=== PATIENT | female | born 1995 | race Two or more races ===

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

== ENCOUNTER → 2017-02-28 | Outpatient (CLI) | payer OTHER ==
--- NOTE | 2017-02-28 17:02 | RADIOLOGY REPORT (SQ) ---
EXAM DESCRIPTION: U/S RETROPERITON (RENAL/AORTA) COMPLETED DATE/TIME: 02/28/2017 3:26 pm REASON FOR STUDY: ESSENTIAL HTN E03.9 HYPOTHYROIDISM, UNSPECIFIED N92.1 EXCESSIVE AND FREQUENT MEN STRUATION WITH IRREGULAR CYC I10 ESSENTIAL (PRIMARY) HYPERTENSION COMPARISON: None. TECHNIQUE: Dynamic and static grayscale images acquired of the kidneys and bladder and recorded on P ACS. Additional selected color Doppler and spectral images recorded. LIMITATIONS: Large patient FINDINGS: RIGHT KIDNEY: Right kidney 10.6 cm in length. No hydronephrosis. No gross chest, stones or masses. LEFT KIDNEY: Left kidney is 10.2 cm in length. No hydronephrosis. No gross cysts, stones, or mirtha s. BLADDER: No masses. Ureteral jets not visualized. OTHER FINDINGS: No other significant finding. IMPRESSION: Limited normal study TECHNICAL DOCUMENTATION: JOB ID: [id number] [employer]- All Rights Reserved
--- NOTE | 2017-02-28 17:03 | RADIOLOGY REPORT (SQ) ---
EXAM DESCRIPTION: U/S NON-OB PELVIS W/O DOP COMPLETED DATE/TIME: 02/28/2017 3:26 pm REASON FOR STUDY: EXCESSIVE AND FREQUENT MENSTRUATION WITH IRREGULAR CYCLE E03.9 HYPOTHYROIDISM, UN SPECIFIED N92.1 EXCESSIVE AND FREQUENT MENSTRUATION WITH IRREGULAR CYC I10 ESSENTIAL (PRIMARY) HYPE RTENSION COMPARISON: None. TECHNIQUE: Dynamic and static grayscale images acquired of the pelvis via transabdominal approach an d recorded on PACS. Additional selected color Doppler and spectral images recorded. LIMITATIONS: Large body habitus FINDINGS: UTERUS: Contour normal. No mass. Uterus is 8 x 4 x 4 cm in size ENDOMETRIAL STRIPE: No focal or generalized thickening. No masses. Endometrial stripe 6 mm in thickn ess CERVIX: No nabothian cysts. RIGHT OVARY: Not visualized RIGHT OVARY DOPPLER: Not performed LEFT OVARY: No abnormal masses. 2.5 x 1.8 x 1.4 cm in size LEFT OVARY DOPPLER: Normal arterial vascular flow without evidence for torsion. FREE FLUID: None noted. OTHER: No other significant finding. IMPRESSION: Right ovary not visualized due to bowel gas. Grossly normal uterus and left ovary. Limited study due to large body habitus TECHNICAL DOCUMENTATION: JOB ID: [id number] [employer]- All Rights Reserved
--- NOTE | 2017-02-28 17:06 | RADIOLOGY REPORT (SQ) ---
EXAM DESCRIPTION: U/S THYROID/SFT TISS HD NECK COMPLETED DATE/TIME: 02/28/2017 3:26 pm REASON FOR STUDY: HYPOTHYROIDISM E03.9 HYPOTHYROIDISM, UNSPECIFIED N92.1 EXCESSIVE AND FREQUENT ME NSTRUATION WITH IRREGULAR CYC I10 ESSENTIAL (PRIMARY) HYPERTENSION COMPARISON: None. TECHNIQUE: Dynamic and static soares-scale images acquired of the thyroid gland. Selected additional c olor/power Doppler images recorded. All images stored to PACS. LIMITATIONS: None. FINDINGS: RIGHT LOBE: Normal size, 3.3 x 2 x 1.4 cm. Heterogeneous echotexture. No cystic or solid masses. LEFT LOBE: Normal size, 4 x 1.8 x 1.3 cm. Heterogeneous echotexture. No cystic or solid masses. ISTHMUS: Normal size. Homogeneous echotexture. No cystic or solid masses. OTHER: No other significant finding. IMPRESSION: Heterogeneous thyroid, normal size. No discrete cysts or masses. TECHNICAL DOCUMENTATION: JOB ID: [id number] [employer]- All Rights Reserved
== END ==
LOC: RAD 14:13
PROVIDERS: ATTEND Family Medicine
DX: E03.9 Hypothyroidism, unspecified (principal); N92.1 Excessive and frequent menstruation with irregular cycle; I10 Essential (primary) hypertension
CPT/HCPCS: 76536; 76770; 76856

== ENCOUNTER → 2017-08-02 | Outpatient (CLI) | payer OTHER, MEDICAID ==
--- NOTE | 2017-08-02 12:10 | RADIOLOGY REPORT (SQ) ---
EXAM DESCRIPTION: ANKLE LEFT COMPLETE COMPLETED DATE/TIME: 08/02/2017 11:44 am REASON FOR STUDY: PAIN IN RIGHT ANKLE AND JOINTS OF RIGHT FOOT (M25.571) M25.571 PAIN IN RIGHT ANKL E AND JOINTS OF RIGHT FOOT COMPARISON: None. NUMBER OF VIEWS: Three views. TECHNIQUE: AP, lateral, and oblique radiographic images acquired of the left ankle. LIMITATIONS: None. FINDINGS: MINERALIZATION: Normal. BONES: No acute fracture or dislocation. No worrisome bone lesions. JOINTS: No effusions. SOFT TISSUES: No soft tissue swelling. No foreign body. OTHER: No other significant finding. IMPRESSION: NEGATIVE STUDY OF THE LEFT ANKLE. NO RADIOGRAPHIC EVIDENCE OF ACUTE INJURY. TECHNICAL DOCUMENTATION: JOB ID: [id number] [employer]- All Rights Reserved
--- NOTE | 2017-08-02 12:11 | RADIOLOGY REPORT (SQ) ---
EXAM DESCRIPTION: FOOT LEFT COMPLETE COMPLETED DATE/TIME: 08/02/2017 11:44 am REASON FOR STUDY: PAIN IN RIGHT ANKLE AND JOINTS OF RIGHT FOOT (M25.571) M25.571 PAIN IN RIGHT ANKL E AND JOINTS OF RIGHT FOOT COMPARISON: None. NUMBER OF VIEWS: Three views. TECHNIQUE: AP, lateral and oblique radiographic images acquired of the left foot. LIMITATIONS: None. FINDINGS: MINERALIZATION: Normal. BONES: No acute fracture or dislocation. No worrisome bone lesions. JOINTS: No effusions. SOFT TISSUES: No soft tissue swelling. No foreign body. OTHER: No other significant finding. IMPRESSION: NEGATIVE STUDY OF THE LEFT FOOT. NO RADIOGRAPHIC EVIDENCE OF ACUTE INJURY. TECHNICAL DOCUMENTATION: JOB ID: [id number] [employer]- All Rights Reserved
== END ==
LOC: RAD 11:05
PROVIDERS: ATTEND Family Medicine
DX: M25.572 Pain in left ankle and joints of left foot (principal); M25.571 Pain in right ankle and joints of right foot

== ENCOUNTER → 2017-11-19 | Outpatient (CLI) | payer OTHER, MEDICAID ==
[2017-11-19 11:05] LABS: ABSOLUTE EOSINOPHILS # (AUTO) 0.3 10^3/uL (0.0-0.6); ABSOLUTE LYMPHOCYTES (AUTO) 3.2 10^3/uL (0.5-4.7); ABSOLUTE MONOCYTES (AUTO) 0.6 10^3/uL (0.1-1.4); ABSOLUTE NEUT (AUTO) 6.3 10^3/uL (1.7-8.2); BASOPHILS % (AUTO) 0.4 % (0-2); EOSINOPHILS % (AUTO) 2.6 % (0-6); HEMATOCRIT 38.2 % (36.0-47.0); HEMOGLOBIN 12.7 g/dL (12.0-15.5); LYMPHOCYTES % (AUTO) 30.8 % (13-45); MEAN CORPUSCULAR HEMOGLOBIN 28.9 pg (27.0-33.4); MEAN CORPUSCULAR HGB CONC 33.3 g/dL (32.0-36.0); MEAN CORPUSCULAR VOLUME 87 fl (80-97); MONOCYTES % (AUTO) 5.4 % (3-13); PLATELET COUNT 412 10^3/uL (150-450); RED CELL DISTRIBUTION WIDTH 16.1 % (11.5-14.0); SEGMENTED NEUTROPHILS % (AUTO) 60.8 % (42-78); TOTAL CELLS COUNTED % (AUTO) 100 %; WHITE BLOOD COUNT 10.3 10^3/uL (4.0-10.5)
[2017-11-19 11:19] LABS: ALANINE AMINOTRANSFERASE 35 U/L (5-35); ALBUMIN 3.9 g/dL (3.7-5.6); ALKALINE PHOSPHATASE 117 U/L (50-135); ANION GAP 12 (5-19); ASPARTATE AMINO TRANSFERASE 23 U/L (5-30); BILIRUBIN,DIRECT 0.2 mg/dL (0.0-0.4); BILIRUBIN,TOTAL 0.3 mg/dL (0.2-1.3); BLOOD UREA NITROGEN 11 mg/dL (7-20); CARBON DIOXIDE 28 mmol/L (22-30); CHLORIDE 105 mmol/L (98-107); GLUCOSE 82 mg/dL (75-110); POTASSIUM 4.2 mmol/L (3.6-5.0); SODIUM 144.5 mmol/L (137-145); TOTAL PROTEIN 7.5 g/dL (6.3-8.2)
[2017-11-19 11:34] LABS: FREE T3 3.3 pg/mL (2.77-5.27); FREE T4 (FREE THYROXINE) 1.28 ng/dL (0.78-2.19)
[2017-11-19 11:48] LABS: THYROID STIMULATING HORMONE 5.5 uIU/mL (0.47-4.68)
[2017-11-19 12:30] LABS: CHLAM PCR NOT DETECTED (NOT DETECT); GON PCR NOT DETECTED (NOT DETECT)
== END ==
LOC: OD 09:28
PROVIDERS: ATTEND Family Medicine
DX: E11.9 Type 2 diabetes mellitus without complications (principal); E55.9 Vitamin D deficiency, unspecified; E03.9 Hypothyroidism, unspecified; Z71.3 Dietary counseling and surveillance; Z11.3 Encounter for screening for infections with a predominantly sexual mode of transmission
CPT/HCPCS: 36415; 80053; 82306; 82607; 83036; 84439; 84443; 84481; 84702; 85025; 86592; 86701; 87491; 87591

== ENCOUNTER → 2018-07-23 | Outpatient (CLI) | payer OTHER, MEDICAID ==
[2018-07-23 10:54] LABS: ABSOLUTE BASOPHILS # (AUTO) 0.1 10^3/uL (0.0-0.2); ABSOLUTE EOSINOPHILS # (AUTO) 0.1 10^3/uL (0.0-0.6); ABSOLUTE LYMPHOCYTES (AUTO) 2.8 10^3/uL (0.5-4.7); ABSOLUTE MONOCYTES (AUTO) 0.5 10^3/uL (0.1-1.4); ABSOLUTE NEUT (AUTO) 7.6 10^3/uL (1.7-8.2); BASOPHILS % (AUTO) 0.6 % (0-2); EOSINOPHILS % (AUTO) 1.1 % (0-6); HEMATOCRIT 36.4 % (36.0-47.0); HEMOGLOBIN 12.4 g/dL (12.0-15.5); LYMPHOCYTES % (AUTO) 25.2 % (13-45); MEAN CORPUSCULAR HEMOGLOBIN 28.5 pg (27.0-33.4); MEAN CORPUSCULAR VOLUME 84 fl (80-97); MONOCYTES % (AUTO) 4.4 % (3-13); PLATELET COUNT 400 10^3/uL (150-450); RED BLOOD COUNT 4.34 10^6/uL (3.72-5.28); RED CELL DISTRIBUTION WIDTH 15.7 % (11.5-14.0); SEGMENTED NEUTROPHILS % (AUTO) 68.7 % (42-78); TOTAL CELLS COUNTED % (AUTO) 100 %
[2018-07-23 11:19] LABS: ALANINE AMINOTRANSFERASE 25 U/L (9-52); ALBUMIN 4.5 g/dL (3.5-5.0); ALKALINE PHOSPHATASE 124 U/L (38-126); ANION GAP 12 (5-19); ASPARTATE AMINO TRANSFERASE 19 U/L (14-36); BILIRUBIN,DIRECT 0.2 mg/dL (0.0-0.4); BILIRUBIN,TOTAL 0.7 mg/dL (0.2-1.3); BLOOD UREA NITROGEN 9 mg/dL (7-20); CALCIUM 9.6 mg/dL (8.4-10.2); CARBON DIOXIDE 28 mmol/L (22-30); CHLORIDE 99 mmol/L (98-107); CHOLESTEROL 181.17 mg/dL (0-200); GLUCOSE 78 mg/dL (75-110); POTASSIUM 3.8 mmol/L (3.6-5.0); SODIUM 138.9 mmol/L (137-145); TOTAL PROTEIN 7.7 g/dL (6.3-8.2); TRIGLYCERIDES 107 mg/dL (<150)
[2018-07-23 11:30] LABS: DIRECT LDL 109 mg/dL (<100)
[2018-07-23 11:32] LABS: FREE T3 2.9 pg/mL (2.77-5.27); FREE T4 (FREE THYROXINE) 1.24 ng/dL (0.78-2.19)
[2018-07-23 11:45] LABS: THYROID STIMULATING HORMONE 3.41 uIU/mL (0.47-4.68)
[2018-07-24 12:38] LABS: MICROALBUMIN URINE 5.2 ug/mL (Not Estab.)
== END ==
LOC: OD 10:01
PROVIDERS: ATTEND Family Medicine
DX: E03.9 Hypothyroidism, unspecified (principal); E55.9 Vitamin D deficiency, unspecified; E11.9 Type 2 diabetes mellitus without complications
CPT/HCPCS: 36415; 80053; 80061; 82043; 82306; 82570; 83036; 84439; 84443; 84481; 85025